=== PATIENT | female | born 1940 | race Caucasian/White ===

== ENCOUNTER 2018-08-10 07:22 | Emergency (ER) | payer MEDICARE ==
[~2018-08-10] VITALS: Ht 162.6 cm; Wt 48.9 kg
[2018-08-10] MEDS ORDERED: ETOMIDATE 2 MG/ML 10 ML VIAL IVP ONE (07:24)
[2018-08-10] MEDS ORDERED: 0.9% SODIUM CHLORIDE 10 ML SYRINGE IVP PRN ×3 (07:45→21:00)
[2018-08-10 07:53] LABS: BASOPHILS % (AUTO) 0.5 % (0.0-2.0); EOSINOPHILS % (AUTO) 0.9 % (1.0-6.0); HEMATOCRIT 37.2 % (36-46); HEMOGLOBIN 11.8 g/dL (12.0-16.0); LYMPHOCYTES # (AUTO) 7.8 K/uL (1.0-4.8); LYMPHOCYTES % (AUTO) 53.3 % (22.0-44.0); MEAN CORPUSCULAR HEMOGLOBIN 29.8 pg (26.0-34.0); MEAN CORPUSCULAR HGB CONC 31.8 G/dL (31.0-37.0); MEAN CORPUSCULAR VOLUME 94 fL (80-100); NEUTROPHILS # (AUTO) 5.6 K/uL (1.8-7.7); NEUTROPHILS % (AUTO) 38.3 % (40.0-70.0); PLATELET COUNT (AUTO) 219 K/uL (150-450); RED BLOOD CELL COUNT(AUTO) 3.98 MIL/uL (4.00-5.20); RED CELL DISTRIBUTION WIDTH 13.3 % (11.5-14.5)
[2018-08-10 08:01] LABS: ANION GAP 16 mmol/L (8-16); CARBON DIOXIDE 19 mmol/L (22-29); CHLORIDE 103 mmol/L (98-107); CREATININE 0.84 mg/dL (0.60-1.30); GLUCOSE,RANDOM 218 mg/dL (70-110); SODIUM SERUM 138 mmol/L (136-145); UREA NITROGEN, BLOOD 17 mg/dL (7-18)
[2018-08-10 08:02] LABS: PROTHROMBIN TIME 10.3 SEC (9.4-11.6)
[2018-08-10 08:03] LABS: ABG A-A DIFF O2 158.9 mmHg (10-20.0); ABG BASE EXCESS -11.3 mmol/L (-2.0-3.0); ABG CARBOXYHEMOGLOBIN 1.3 % (0.0-1.5); ABG HCO3 16.5 mmol/L (22.0-26.0); ABG METHEMOGLOBIN 0.4 % (0.0-1.5); ABG OXYGEN CONTENT 18.6 mL/dL (15.0-23.0); ABG OXYGEN SATURATION 99.9 % (95.0-98.0); ABG OXYHEMOGLOBIN 98.2 % (94.0-100.0); ABG PCO2 32 mmHg (35-45); ABG PH 7.297 (7.35-7.450); ABG TOTAL HEMOGLOBIN 12.4 G/dL (12.0-18.0); O2 DEVICE,BLOOD GAS VENTILATOR (ROOM AIR); PO2, ARTERIAL BG 523.2 mmHg (75.0-83.0); SITE, BLOOD GAS RT RADIAL; SOURCE, BLOOD GAS ARTERIAL; TEMPERATURE, FAHRENHEIT, BG 97.9 FAHREN (96.0-98.6); VT, ABG 450 ml
[2018-08-10 08:04] LABS: PEEP,BG 5 cm H2O
[2018-08-10 08:09] LABS: GLOMERULAR FILTR. RATE CALC > 60 mL/min (>60)
[2018-08-10 08:21] LABS: B-TYPE NATRIURETIC PEPTIDE 51 pg/mL (0-100)
[2018-08-10] MEDS: PROPOFOL 1000 MG/ISO-OSM 100 ML IV PRN ×3 (08:22→15:05)
[2018-08-10 08:26] LABS: ALANINE AMINOTRANSFERASE 19 U/L (12-78); ALBUMIN 3.2 g/dL (3.4-5.0); ALKALINE PHOSPHATASE 85 U/L (46-116); ASPARTATE AMINOTRANSFERASE 21 U/L (15-37); BILIRUBIN,TOTAL 0.2 mg/dL (0.1-1.0); CREATINE KINASE, TOTAL ONLY 76 U/L (26-192); TOTAL PROTEIN, SERUM 7.3 g/dL (6.4-8.2)
[2018-08-10 08:40] LABS: LACTIC ACID 8.7 mmol/L (0.4-2.0)
[2018-08-10 08:49] LABS: APPEARANCE,URINE CLOUDY (CLEAR); BILIRUBIN,URINE NEGATIVE (NEGATIVE); GLUCOSE, URINE (UA) NEGATIVE (NEGATIVE); KETONES,URINE NEGATIVE (NEGATIVE); LEUKOCYTE ESTERASE ,URINE MODERATE (NEGATIVE); NITRATE,URINE NEGATIVE (NEGATIVE); OCCULT BLOOD,URINE SMALL (NEGATIVE); PH,URINE 5.5 (5.0-8.0); PROTEIN,URINE POS 1+ (NEGATIVE); UROBILINOGEN,URINE 0.2 mg/dL (<=1.0)
[2018-08-10] MEDS ORDERED: SODIUM CHLORIDE 0.9% 1,450 ML IV ONE (09:15)
[2018-08-10 09:17] LABS: BACTERIA,URINE Moderate /HPF (None Seen); SQUAMOUS EPITHELIAL CELL,UR Many /LPF (None Seen); WBC,URINE 26-50 /HPF (0-5)
[2018-08-10] MEDS ORDERED: PIPERACILLIN/TAZO 3.375 GM/D5W 50 ML IV ONE (09:30)
[2018-08-10] MEDS ORDERED: LORA0.5T2 PO (09:40)
[2018-08-10] MEDS ORDERED: ATOR40TA28 PO (09:40)
[2018-08-10] MEDS ORDERED: [UNRECOGNIZED DRUG - CODE] PO (09:40)
[2018-08-10] MEDS ORDERED: CETI-170 PO (09:40)
[2018-08-10] MEDS ORDERED: MORP5L PO (10:40)
[2018-08-10] MEDS ORDERED: ACETAMINOPHEN 325 MG TABLET PO PRN (10:45)
[2018-08-10] MEDS ORDERED: ONDANSETRON HCL 4 MG/2 ML VIAL IVP PRN (10:45)
[2018-08-10] MEDS ORDERED: MIDAZOLAM HCL 100 MG in DEXTROSE 5%-WATER 180 ML IV PRN (10:45)
[2018-08-10 10:57] LABS: INFLUENZA TYPE A NEGATIVE FOR TYPE A (NEGATIVE); INFLUENZA TYPE B NEGATIVE FOR TYPE B (NEGATIVE)
[2018-08-10] MEDS ORDERED: PROPOFOL 1000 MG/ISO-OSM 100 ML IV PRN (12:30)
[2018-08-10] MEDS: MIDAZOLAM HCL 100 MG in DEXTROSE 5%-WATER 180 ML IV PRN (15:05)
[2018-08-10] MEDS ORDERED: VANCOMYCIN HCL 1 GM/D5% WATER 200 ML IV ONE (17:00)
[2018-08-10] MEDS ORDERED: ACETAMINOPHEN 650 MG/ISO-OSM 65 ML IV ONE (17:00)
[2018-08-10] MEDS ORDERED: MAGNESIUM HYDROXIDE SUSPENSION 30 ML UDCUP PO PRN (21:00)
[2018-08-10] MEDS: PANTOPRAZOLE SODIUM 40 MG/VIAL IVP SCH (21:15)
[2018-08-10] MEDS: PIPERACILLIN/TAZO 3.375 GM/D5W 50 ML IV SCH (21:58)
[2018-08-11] MEDS: PIPERACILLIN/TAZO 3.375 GM/D5W 50 ML IV SCH ×2 (03:47→11:01)
[2018-08-11] MEDS: PROPOFOL 1000 MG/ISO-OSM 100 ML IV PRN (05:28)
[2018-08-11] MEDS ORDERED: HydrALAZINE HCL 20 MG/ML VIAL IVP PRN (06:45)
[2018-08-11] MEDS ORDERED: MIDAZOLAM HCL 100 MG in DEXTROSE 5%-WATER 180 ML IV PRN (07:00)
[2018-08-11] MEDS ORDERED: VANCOMYCIN HCL 500 MG in DEXTROSE 5%-WATER 100 ML IV SCH ×2 (08:00→17:30)
[2018-08-11 08:43] LABS: BASOPHILS % (AUTO) 0.2 % (0.0-2.0); EOSINOPHILS % (AUTO) 0.3 % (1.0-6.0); HEMATOCRIT 33.9 % (36-46); HEMOGLOBIN 11.3 g/dL (12.0-16.0); LYMPHOCYTES # (AUTO) 1.4 K/uL (1.0-4.8); LYMPHOCYTES % (AUTO) 13.3 % (22.0-44.0); MEAN CORPUSCULAR HEMOGLOBIN 30.3 pg (26.0-34.0); MEAN CORPUSCULAR HGB CONC 33.3 G/dL (31.0-37.0); MEAN CORPUSCULAR VOLUME 91 fL (80-100); MONOCYTES % (AUTO) 9.6 % (2.0-9.0); NEUTROPHILS # (AUTO) 8.2 K/uL (1.8-7.7); NEUTROPHILS % (AUTO) 76.6 % (40.0-70.0); PLATELET COUNT (AUTO) 125 K/uL (150-450); RED BLOOD CELL COUNT(AUTO) 3.72 MIL/uL (4.00-5.20); RED CELL DISTRIBUTION WIDTH 13.1 % (11.5-14.5)
[2018-08-11 09:08] LABS: ALANINE AMINOTRANSFERASE 18 U/L (12-78); ALBUMIN 2.9 g/dL (3.4-5.0); ALKALINE PHOSPHATASE 62 U/L (46-116); ANION GAP 12 mmol/L (8-16); ASPARTATE AMINOTRANSFERASE 27 U/L (15-37); BILIRUBIN,TOTAL 0.7 mg/dL (0.1-1.0); CALCIUM, TOTAL 8.9 mg/dL (8.8-10.5); CARBON DIOXIDE 22 mmol/L (22-29); CHLORIDE 105 mmol/L (98-107); CREATININE 0.63 mg/dL (0.60-1.30); GLUCOSE,RANDOM 86 mg/dL (70-110); POTASSIUM 3.8 mmol/L (3.5-5.1); SODIUM SERUM 139 mmol/L (136-145); TOTAL PROTEIN, SERUM 6.8 g/dL (6.4-8.2); UREA NITROGEN, BLOOD 12 mg/dL (7-18)
[2018-08-11 09:09] LABS: GLOMERULAR FILTR. RATE CALC > 60 mL/min (>60)
[2018-08-11] MEDS: PANTOPRAZOLE SODIUM 40 MG/VIAL IVP SCH (09:50)
[2018-08-11 10:06] LABS: ABG A-A DIFF O2 105.3 mmHg (10-20.0); ABG BASE EXCESS -4.1 mmol/L (-2.0-3.0); ABG CARBOXYHEMOGLOBIN 0.6 % (0.0-1.5); ABG HCO3 22.2 mmol/L (22.0-26.0); ABG METHEMOGLOBIN 0.3 % (0.0-1.5); ABG OXYGEN SATURATION 99.6 % (95.0-98.0); ABG OXYHEMOGLOBIN 98.7 % (94.0-100.0); ABG PCO2 25 mmHg (35-45); ABG PH 7.507 (7.35-7.450); ABG TOTAL HEMOGLOBIN 11.2 G/dL (12.0-18.0); O2 DEVICE,BLOOD GAS VENTILATOR (ROOM AIR); PO2, ARTERIAL BG 187.8 mmHg (75.0-83.0); SITE, BLOOD GAS LFT BRACHIAL; SOURCE, BLOOD GAS ARTERIAL; TEMPERATURE, FAHRENHEIT, BG 98.5 FAHREN (96.0-98.6)
[2018-08-11 10:07] LABS: PEEP,BG 5 cm H2O; VT, ABG 450 ml
[2018-08-11] MEDS: MIDAZOLAM HCL 100 MG in DEXTROSE 5%-WATER 180 ML IV PRN (11:37)
[2018-08-11 13:00] VITALS: BP 138/60
== END 2018-08-11 13:10 | disposition short-term general hospital (02) ==
LOC: EMS 07:23
DX: A41.9 Sepsis, unspecified organism (principal); R65.20 Severe sepsis without septic shock; J96.00 Acute respiratory failure, unspecified whether with hypoxia or hypercapnia; N39.0 Urinary tract infection, site not specified; I10 Essential (primary) hypertension; Z86.73 Personal history of transient ischemic attack (TIA), and cerebral infarction without residual deficits
CPT/HCPCS: 31500; 36415; 71045; 80053; 81001; 82550; 82805; 83605; 83880; 84145; 84484; 85025; 85610; 85730; 87040; 87077; 87086; 87186; 87804; 93005; 94003; 96365; 96366; 96367; 96375; 96376; 99291; C9113 ×2; J0131; J0360; J2250 ×2; J2543; J2704; J3370; J3490; J7030; J7060 ×2; 94002